=== PATIENT | male | born 1955 | race Caucasian/White ===

== ENCOUNTER 2021-03-14 16:27 | Inpatient (IN) | payer OTHER ==
[~2021-03-14] VITALS: Ht 177.8 cm; Wt 121.2 kg
--- NOTE | 2021-03-14 18:24 | PHYS DOC ---
General Adult EDM: Chief Complaint: ABDOMINAL PAIN HPI: HPI: 65-year-old male past medical history of hypertension, hyperlipidemia and obesity, presents to the ED sent in by primary care physician Dr. Danielle with concerns for elevated liver function test. Patient was seen by his primary care physician with epigastric abdominal pain and vomiting for the past week. Does report loose stools for the past day. Denies any history of alcohol abuse, IVDU or sick contacts. No history of Covid. No known history of hepatitis. No associated melena, hematuria, bruising or increased bleeding. Currently reports no active vomiting. Abdominal pain is mild/well controlled. Review of Systems: Review of Systems: Constitutional: Denies fever or chills. [] Eyes: Denies change in visual acuity. [] HENT: Denies nasal congestion or sore throat. [] Respiratory: Denies cough or shortness of breath. [] Cardiovascular: Denies chest pain or edema. [] GI: Denies constipation, melena, hematochezia : Denies hematuria Musculoskeletal: Denies back pain or joint pain. [] Integument: Denies rash or bleeding Neurologic: Denies headache, focal weakness or sensory changes. [] Endocrine: Denies polyuria or polydipsia. [] Lymphatic: Denies swollen glands. [] Psychiatric: Denies depression or anxiety. [] Heart Score: C/O Chest Pain: No Risk Factors: Risk Factors: DM, Current or recent (<one month) smoker, HTN, HLP, family history of CAD, obesity. Risk Scores: Score 0 - 3: 2.5% MACE over next 6 weeks - Discharge Home Score 4 - 6: 20.3% MACE over next 6 weeks - Admit for Clinical Observation Score 7 - 10: 72.7% MACE over next 6 weeks - Early Invasive Strategies Physical Exam: PE: Constitutional: Well developed, well nourished, no acute distress, non-toxic appearance. HENT: Normocephalic, atraumatic, Eyes: EOMI, conjunctiva normal, no discharge. Neck: Normal range of motion, supple, Cardiovascular: S1/2 present, regular rhythm Lungs & Thorax: Speaking in full sentences, bilateral equal chest rise, no tachypnea or increased work of breathing Abdomen: soft, no tenderness, no rigidity or guarding, no right upper quadrant pain Patrick sign, obese abdomen Skin: Warm, dry, abdomen with multiple small hemangiomas 2mm Back: No tenderness, no CVA tenderness. [] Extremities: No tenderness, no cyanosis, no lower extremity edema Neurologic: Alert and oriented X 3, normal motor function, normal sensory function, no focal deficits noted. [] Psychologic: Affect normal, judgement normal, mood normal. [] EKG: EKG: Sinus rhythm at 57 bpm, no axis deviation, normal intervals, T wave inversion lead III, Q-wave in 3 and aVF, no ST elevation or ST depression, no active chest pain Radiology/Procedures: Radiology/Procedures: IMAGING REPORT Signed PATIENT: FELIX TAFOYACCOUNT: [id number] : 1955 LOCATION: ER AGE: 65 SEX: M EXAM STATUS: REG ER ORD. PHYSICIAN: MATHEW EDWARDS DO REASON: epigastric pain, OMNI 300 75 ML IV PROCEDURE: CT ABD PELV W/ IV CONTRST ONLY Exam: CT of abdomen and pelvis with contrast INDICATION: Epigastric pain TECHNIQUE: Sequential axial images through the abdomen and pelvis obtained following the administration of 75 mL of Isovue-370 IV contrast. Sagittal and coronal reformatted images were reconstructed from the axial data and reviewed. Exposure: One or more of the following in the visualized dose reduction techniques were utilized for this examination: 1. Automated exposure control 2. Adjustment of the MA and/or KV according to patient size 3. Use of iterative of reconstructive technique Comparisons: None FINDINGS: Heart size is normal. No pericardial effusion. Visualized lung bases are clear. No pleural effusion. Mild intrahepatic biliary ductal dilatation. Common bile duct is mildly dilated with stone noted at the ampulla measuring approximately 5 mm. There is additionally a 8 mm calculus in the common bile duct noted. Gallbladder is partially distended. Spleen, pancreas and adrenals are unremarkable. No perinephric inflammation or hydronephrosis. There is a cyst in the mid right kidney which measures approximately 2.7 cm in diameter. No renal or ureteral calculi are identified. Bladder is partially distended and not well evaluated. Prostate is not enlarged. Large and small bowel are unremarkable. Appendix is nonidentified. No free intra-abdominal air or fluid. No obstruction. Abdominal aorta has a normal course and caliber. Abdominal vasculature is patent. No enlarged intra-abdominal lymph nodes are identified. No suspicious osseous lesions or acute fractures. IMPRESSION: A 5 mm gallstone at the ampulla with associated common bile duct dilatation and mild intrahepatic biliary ductal dilatation. Additionally there is also a 8 mm gallstone in the more proximal common bile duct. Electronically signed by: Jennifer Contreras MD (03/14/2021 7:39 PM) [facility] DICTATED and SIGNED BY: JENNIFER CONTRERAS MD DATE: 03/14/21 [id number] 0 Course & Med Decision Making: Course & Med Decision Making Pertinent Labs and Imaging studies reviewed. (See chart for details) Concern for acute gallstone pancreatitis in the setting of elevated liver functions, no jaundice or fever. Will admit for medical management. GI consult placed. Patient stable time of admission and agrees with this plan. I have spoken with the patient and/or caregivers. I have explained the patient's condition, diagnosis and treatment plan based on the information available to me at this time. I have answered the patient's and/or caregivers questions and answered any concerns. The patient and/or caregivers have as good an understanding of the patient's diagnosis, condition and treatment plan as can be expected at this point. The patient has been stabilized within the capability of the emergency department. The patient will be transported for further care and management or will be moved to an observation or inpatient service. I have communicated with the staff or medical practitioner taking over this patient's care. Fredy Disclaimer: Fredy Disclaimer: This electronic medical record was generated, in whole or in part, using a voice recognition dictation system. Departure Departure Impression: Primary Impression: Acute gallstone pancreatitis Additional Impression: Elevated liver function tests Disposition: ADMITTED INPATIENT Admitting Physician: [facility] (Dr. Potts) Condition: STABLE MATHEW EDWARDS DO Mar 14, 2021 18:24
[2021-03-14 18:49] LABS: BASO # 0.1 x10^3/uL (0.0-0.2); BASO % 1 % (0-3); EOS # 0.3 x10^3/uL (0.0-0.7); EOS % 5 % (0-3); HEMATOCRIT 38.3 % (39.0-53.0); LYMPH # 1.1 x10^3/uL (1.0-4.8); LYMPH % 20 % (24-48); MEAN CORPUSCULAR HEMOGLOBIN 28 pg (25-35); MEAN CORPUSCULAR HGB CONC 34 g/dL (31-37); MEAN CORPUSCULAR VOLUME 83 fL (79-100); MONO # 0.8 x10^3/uL (0.0-1.1); MONO % 14 % (0-9); NEUT # 3.4 x10^3/uL (1.8-7.7); NEUT % 61 % (31-73); PLATELET COUNT 307 x10^3/uL (140-400); RED BLOOD COUNT 4.63 x10^6/uL (4.30-5.70); RED CELL DISTRIBUTION WIDTH 15.5 % (11.5-14.5); WHITE BLOOD COUNT 5.7 x10^3/uL (4.0-11.0)
[2021-03-14 19:00] LABS: CALCIUM 9.2 mg/dL (8.5-10.1); GFR 75.2; POTASSIUM 4.5 mmol/L (3.5-5.1)
[2021-03-14 19:04] LABS: ACETAMIN < 2 mcg/ml (10-30)
[2021-03-14 19:06] LABS: ALBUMIN 3.7 g/dL (3.4-5.0); DIRECT BILIRUBIN 1.2 mg/dL (0.0-0.2); TOTAL BILIRUBIN 1.9 mg/dL (0.2-1.0); TOTAL PROTEIN 7.2 g/dL (6.4-8.2)
[2021-03-14] MEDS ORDERED: IOHEXOL 300 MG/ML 100ML VIAL. IV ONE (19:15)
[2021-03-14] MEDS ORDERED: CONTRAST GIVEN. MC PRN (19:15)
--- NOTE | 2021-03-14 19:41 | RAD ---
Exam: CT of abdomen and pelvis with contrast INDICATION: Epigastric pain TECHNIQUE: Sequential axial images through the abdomen and pelvis obtained following the administrati on of 75 mL of Isovue-370 IV contrast. Sagittal and coronal reformatted images were reconstructed fro m the axial data and reviewed. Exposure: One or more of the following in the visualized dose reduction techniques were utilized for this examination: 1. Automated exposure control 2. Adjustment of the MA and/or KV according to patient size 3. Use of iterative of reconstructive technique Comparisons: None FINDINGS: Heart size is normal. No pericardial effusion. Visualized lung bases are clear. No pleural effusion. Mild intrahepatic biliary ductal dilatation. Common bile duct is mildly dilated with stone noted at t he ampulla measuring approximately 5 mm. There is additionally a 8 mm calculus in the common bile harman t noted. Gallbladder is partially distended. Spleen, pancreas and adrenals are unremarkable. No perinephric inflammation or hydronephrosis. There is a cyst in the mid right kidney which measures approximately 2.7 cm in diameter. No renal or ureteral calculi are identified. Bladder is partially distended and not well evaluated. Prostate is not enlarged. Large and small bowel are unremarkable. Appendix is nonidentified. No free intra-abdominal air or flu id. No obstruction. Abdominal aorta has a normal course and caliber. Abdominal vasculature is patent. No enlarged intra-abdominal lymph nodes are identified. No suspicious osseous lesions or acute fractures. IMPRESSION: A 5 mm gallstone at the ampulla with associated common bile duct dilatation and mild intrahepatic erasmo iary ductal dilatation. Additionally there is also a 8 mm gallstone in the more proximal common bile duct. Electronically signed by: Jennifer Briceno MD (03/14/2021 7:39 PM) [facility] [place]
[2021-03-14 20:55] LABS: BARBITURATES NEG (NEG); BENZODIAZEPINES NEG (NEG); CANNABINOIDS NEG (NEG); COCAINE NEG (NEG); METHADONE NEG (NEG); OPIATES NEG (NEG); PHENCYCLIDINE NEG (NEG)
[2021-03-14 20:57] LABS: AMPHETAMINE/METHAMPHETAMINE NEG (NEG)
--- NOTE | 2021-03-14 21:38 | PDOC1 ---
History and Physical Date of Admission Date of Admission DATE: 03/14/21 TIME: 21:36 Source Source: Chart review, Patient History of Present Illness History of Present Illness Mr. Anderson is a 65-year-old male with acutely abd pain, with vomiting and diarrhea that has actually improved today. He has had pain for a week and has seen his primary care and wast sent in by Dr. Danielle for LFT lab tests out of range yesterday, LFTs about 800 and was sent to the ER, he had diarrhea, worse a few days ago, and better today only, he was able to eat a [employer] sub at 1pm and has kept it down and has no abd pain currenlty no fever or chills or other nausea no new meds, no travel, no sick contacts. No history of Covid. Past Medical History Past Medical History hypertension, hyperlipidemia and obesity, Cardiovascular: HTN, Hyperlipidemia Pulmonary: No pertinent hx Psych: No pertinent hx Rheumatologic: No pertinent hx Infectious disease: No pertinent hx Endocrine: No pertinent hx Dermatology: No pertinent hx Family History Family History: No Significant Social History Smoke: No ALCOHOL: none Drugs: None Current Problem List Problem List Problems Medical Problems: (1) Acute gallstone pancreatitis Status: Acute (2) Acute pancreatitis Status: Acute (3) Elevated liver function tests Status: Acute Current Medications Current Medications Current Medications Iohexol (Omnipaque 300 Mg/ml) 75 ml 1X ONCE IV Last administered on 03/14/21at 19:39; Start 03/14/21 at 19:15; Stop 03/14/21 at 19:16; Status DC Info (CONTRAST GIVEN -- Rx MONITORING) 1 each PRN DAILY PRN MC SEE COMMENTS; Start 03/14/21 at 19:15; Stop 03/16/21 at 19:14 Allergies Allergies: Coded Allergies: No Known Drug Allergies (Unverified , 03/14/21) ROS General: No: Chills, Night Sweats, Fatigue, Malaise, Appetite, Other PSYCHOLOGICAL ROS: No: Anxiety, Behavioral Disorder, Concentration difficultie, Decreased libido, Depression, Disorientation, Hallucinations, Hostility, Irritablity, Memory difficulties, Mood Swings, Obsessive thoughts, Physical abuse, Sexual abuse, Sleep disturbances, Suicidal ideation, Other Eyes: No Blurry vision, No Decreased vision, No Double vision, No Dry eyes, No Excessive tearing, No Eye Pain, No Itchy Eyes, No Loss of vision, No Photophobia, No Scotomata, No Uses contacts, No Uses glasses, No Other HEENT: No: Heacaches, Visual Changes, Hearing change, Nasal congestion, Nasal discharge, Oral lesions, Sinus pain, Sore Throat, Epistaxis, Sneezing, Snoring, Tinnitus, Vertigo, Vocal changes, Other Respiratory: No: Cough, Hemoptysis, Orthopnea, Pleuritic Pain, Shortness of breath, SOB with excertion, Sputum Changes, Stridor, Tachypnea, Wheezing, Other Cardiovascular: No Chest Pain, No Palpitations, No Orthopnea, No Paroxysmal Noc. Dyspnea, No Edema, No Lt Headedness, No Other Gastrointestinal: Yes Nausea, Yes Abdominal Pain, Yes Diarrhea Genitourinary: No Dysuria, No Frequency, No Incontinence, No Hematuria, No Retention, No Discharge, No Urgency, No Pain, No Flank Pain, No Other, No , No , No , No , No , No , No Musculoskeletal: No Gait Disturbance, No Joint Pain, No Joint Stiffness, No Joint Swelling, No Muscle Pain, No Muscular Weakness, No Pain In:, No Swelling In:, No Other Neurological: No Behavorial Changes, No Bowel/Bladder ControlChng, No Confusion, No Dizziness, No Gait Disturbance, No Headaches, No Impaired Coord/balance, No Memory Loss, No Numbness/Tingling, No Seizures, No Speech Problems, No Tremors, No Visual Changes, No Weakness, No Other Skin: No Dry Skin, No Eczema, No Hair Changes, No Lumps, No Mole Changes, No Mottling, No Nail Changes, No Pruritus, No Rash, No Skin Lesion Changes, No Other, No Acne Physical Exam General: Alert, Oriented X3, Cooperative, No acute distress HEENT: Atraumatic, PERRLA Lungs: Clear to auscultation Heart: S1S2, RRR, no gallops, no murmurs Abdomen: Normal bowel sounds, Soft, No tenderness, No masses (obese, ), Other (negative sheikh sign) Extremities: No cyanosis, No edema, Normal pulses Skin: No rashes, No breakdown, No significant lesion Neuro: Normal speech, Sensation intact, Cranial nerves 3-12 NL Psych/Mental Status: Mental status NL, Mood NL Vitals Vitals Vital Signs Date Time Temp Pulse Resp B/P (MAP) Pulse Ox O2 Delivery O2 Flow Rate FiO2 03/14/21 20:23 54 16 160/77 (104) 97 Room Air 03/14/21 18:30 98.7 98.7 Labs Labs Laboratory Tests Test 03/14/21 18:35 03/14/21 20:30 White Blood Count 5.7 x10^3/uL (4.0-11.0) Red Blood Count 4.63 x10^6/uL (4.30-5.70) Hemoglobin 13.0 g/dL (13.0-17.5) Hematocrit 38.3 % (39.0-53.0) Mean Corpuscular Volume 83 fL (79-100) Mean Corpuscular Hemoglobin 28 pg (25-35) Mean Corpuscular Hemoglobin Concent 34 g/dL (31-37) Red Cell Distribution Width 15.5 % (11.5-14.5) Platelet Count 307 x10^3/uL (140-400) Neutrophils (%) (Auto) 61 % (31-73) Lymphocytes (%) (Auto) 20 % (24-48) Monocytes (%) (Auto) 14 % (0-9) Eosinophils (%) (Auto) 5 % (0-3) Basophils (%) (Auto) 1 % (0-3) Neutrophils # (Auto) 3.4 x10^3/uL (1.8-7.7) Lymphocytes # (Auto) 1.1 x10^3/uL (1.0-4.8) Monocytes # (Auto) 0.8 x10^3/uL (0.0-1.1) Eosinophils # (Auto) 0.3 x10^3/uL (0.0-0.7) Basophils # (Auto) 0.1 x10^3/uL (0.0-0.2) Sodium Level 141 mmol/L (136-145) Potassium Level 4.5 mmol/L (3.5-5.1) Chloride Level 107 mmol/L (98-107) Carbon Dioxide Level 26 mmol/L (21-32) Anion Gap 8 (6-14) Blood Urea Nitrogen 16 mg/dL (8-26) Creatinine 1.0 mg/dL (0.7-1.3) Estimated GFR (Cockcroft-Gault) 75.2 Glucose Level 91 mg/dL (70-99) Calcium Level 9.2 mg/dL (8.5-10.1) Total Bilirubin 1.9 mg/dL (0.2-1.0) Direct Bilirubin 1.2 mg/dL (0.0-0.2) Aspartate Amino Transf (AST/SGOT) 367 U/L (15-37) Alanine Aminotransferase (ALT/SGPT) 786 U/L (16-63) Alkaline Phosphatase 395 U/L (46-116) Creatine Kinase 469 U/L (39-308) Total Protein 7.2 g/dL (6.4-8.2) Albumin 3.7 g/dL (3.4-5.0) Lipase 437 U/L (73-393) Acetaminophen Level < 2 mcg/ml (10-30) Acetaminophen Last Dose Date Unk Acetaminophen Last Dose Time Unk Urine Opiates Screen Neg (NEG) Urine Methadone Screen Neg (NEG) Urine Barbiturates Neg (NEG) Urine Phencyclidine Screen Neg (NEG) Urine Amphetamine/Methamphetamine Neg (NEG) Urine Benzodiazepines Screen Neg (NEG) Urine Cocaine Screen Neg (NEG) Urine Cannabinoids Screen Neg (NEG) Urine Ethyl Alcohol Neg (NEG) Laboratory Tests Test 03/14/21 18:35 03/14/21 20:30 White Blood Count 5.7 x10^3/uL (4.0-11.0) Red Blood Count 4.63 x10^6/uL (4.30-5.70) Hemoglobin 13.0 g/dL (13.0-17.5) Hematocrit 38.3 % (39.0-53.0) Mean Corpuscular Volume 83 fL (79-100) Mean Corpuscular Hemoglobin 28 pg (25-35) Mean Corpuscular Hemoglobin Concent 34 g/dL (31-37) Red Cell Distribution Width 15.5 % (11.5-14.5) Platelet Count 307 x10^3/uL (140-400) Neutrophils (%) (Auto) 61 % (31-73) Lymphocytes (%) (Auto) 20 % (24-48) Monocytes (%) (Auto) 14 % (0-9) Eosinophils (%) (Auto) 5 % (0-3) Basophils (%) (Auto) 1 % (0-3) Neutrophils # (Auto) 3.4 x10^3/uL (1.8-7.7) Lymphocytes # (Auto) 1.1 x10^3/uL (1.0-4.8) Monocytes # (Auto) 0.8 x10^3/uL (0.0-1.1) Eosinophils # (Auto) 0.3 x10^3/uL (0.0-0.7) Basophils # (Auto) 0.1 x10^3/uL (0.0-0.2) Sodium Level 141 mmol/L (136-145) Potassium Level 4.5 mmol/L (3.5-5.1) Chloride Level 107 mmol/L (98-107) Carbon Dioxide Level 26 mmol/L (21-32) Anion Gap 8 (6-14) Blood Urea Nitrogen 16 mg/dL (8-26) Creatinine 1.0 mg/dL (0.7-1.3) Estimated GFR (Cockcroft-Gault) 75.2 Glucose Level 91 mg/dL (70-99) Calcium Level 9.2 mg/dL (8.5-10.1) Total Bilirubin 1.9 mg/dL (0.2-1.0) Direct Bilirubin 1.2 mg/dL (0.0-0.2) Aspartate Amino Transf (AST/SGOT) 367 U/L (15-37) Alanine Aminotransferase (ALT/SGPT) 786 U/L (16-63) Alkaline Phosphatase 395 U/L (46-116) Creatine Kinase 469 U/L (39-308) Total Protein 7.2 g/dL (6.4-8.2) Albumin 3.7 g/dL (3.4-5.0) Lipase 437 U/L (73-393) Acetaminophen Level < 2 mcg/ml (10-30) Acetaminophen Last Dose Date Unk Acetaminophen Last Dose Time Unk Urine Opiates Screen Neg (NEG) Urine Methadone Screen Neg (NEG) Urine Barbiturates Neg (NEG) Urine Phencyclidine Screen Neg (NEG) Urine Amphetamine/Methamphetamine Neg (NEG) Urine Benzodiazepines Screen Neg (NEG) Urine Cocaine Screen Neg (NEG) Urine Cannabinoids Screen Neg (NEG) Urine Ethyl Alcohol Neg (NEG) VTE Prophylaxis Ordered VTE Prophylaxis Devices: No VTE Pharmacological Prophylaxi: No Assessment/Plan Assessment/Plan acute abdominal pain with nausea and diarrhea that has improved, acute transaminitis, gallstone seen on CT scan, appears impacted, but now no pain, no sheikh sign, may have passed plan labs in AM GI and gen surg to see. PMH: obese, BMI 38, htn, lipids Justifications for Admission Other Justification CLARE LEE MD Mar 14, 2021 21:38
[2021-03-14 21:47] VITALS: BP 169/69
[2021-03-14] MEDS: IV NORMAL SALINE 1000ML BAG 1,000 ML IV SCH (23:43)
[2021-03-14 23:58] VITALS: BP 102/57
--- NOTE | 2021-03-15 00:07 | EKG ---
[facility] [address] [place] [address] Test Date: 2021-03-14 Test Time: 19:09:24 Pat Name: FELIX TAFOYA Department: Room: Gender: M [employer]: : 1955 Requested By: MATHEW EDWARDS Order Number: [id number] Reading MD: Measurements Intervals Finley Rate: 57 P: 0 NH: 166 QRS: 14 QRSD: 84 T: 17 QT: 432 QTc: 424 Interpretive Statements SINUS RHYTHM NORMAL ECG RI6.02 No previous ECG available for comparison
[2021-03-15 04:14] VITALS: BP 101/49
[2021-03-15 04:30] LABS: PROTHROMBIN TIME PATIENT 12.6 SEC (11.7-14.0)
[2021-03-15 04:40] LABS: ALBUMIN 3.1 g/dL (3.4-5.0); ALBUMIN/GLOBULIN RATIO 0.9 (1.0-1.7); CALCIUM 8.7 mg/dL (8.5-10.1); CREATININE 0.9 mg/dL (0.7-1.3); POTASSIUM 3.6 mmol/L (3.5-5.1); TOTAL BILIRUBIN 1.4 mg/dL (0.2-1.0); TOTAL PROTEIN 6.5 g/dL (6.4-8.2)
[2021-03-15] MEDS ORDERED: ZINC50TA39 PO (05:42)
[2021-03-15] MEDS ORDERED: CETI10TA16 PO (05:42)
[2021-03-15] MEDS ORDERED: LISI20TA18 PO (05:42)
[2021-03-15] MEDS ORDERED: CHOL500045 PO (05:42)
[2021-03-15] MEDS ORDERED: ATOR40TA59 PO (05:42)
[2021-03-15] MEDS ORDERED: OMEG1CAP6 PO (05:42)
[2021-03-15] MEDS ORDERED: FEXO180T16 PO (05:42)
[2021-03-15 07:00] VITALS: BP 138/82
[2021-03-15] MEDS: IV NORMAL SALINE 1000ML BAG 1,000 ML IV SCH ×2 (09:03→17:45)
--- NOTE | 2021-03-15 09:08 | PDOC2 ---
CONSULT Date of Consult Date of Consult DATE: 03/15/21 TIME: 09:05 Reason for Consult Reason for Consult: Abdominal pain pancreatitis Referring Physician Referring Physician: Delroy Identification/Chief Complaint Chief Complaint Abdominal pain nausea vomiting Source Source: Chart review, Patient History of Present Illness Reason for Visit: 65-year-old male has been ill for approximately a week and a half with epigastric abdominal pain bloating feeling have 1 episode of emesis with some nausea. Is never had an episode like this before. Came to the emergency department further evaluation CT scan was done which showed a stone at the ampulla of Vater and a smaller stone more proximal in the common bile duct. Elevated liver enzymes and lipase Past Medical History Cardiovascular: HTN, Hyperlipidemia Pulmonary: No pertinent hx Psych: No pertinent hx Rheumatologic: No pertinent hx Infectious disease: No pertinent hx Endocrine: No pertinent hx Dermatology: No pertinent hx Family History Family History: No Significant Social History No ALCOHOL: none Drugs: None Current Problem List Problem List Problems Medical Problems: (1) Acute gallstone pancreatitis Status: Acute (2) Acute pancreatitis Status: Acute (3) Elevated liver function tests Status: Acute Current Medications Current Medications Current Medications Iohexol (Omnipaque 300 Mg/ml) 75 ml 1X ONCE IV Last administered on 03/14/21at 19:39; Start 03/14/21 at 19:15; Stop 03/14/21 at 19:16; Status DC Info (CONTRAST GIVEN -- Rx MONITORING) 1 each PRN DAILY PRN MC SEE COMMENTS; Start 03/14/21 at 19:15; Stop 03/16/21 at 19:14 Sodium Chloride 1,000 ml @ 100 mls/hr Q10H IV Last administered on 03/15/21at 09:03; Start 03/14/21 at 21:45 Active Scripts Active Reported Cetirizine Hcl 10 Mg Tablet 1 Tab PO DAILY PRN Zinc 50 Mg Tablet 50 Mg PO DAILY Vitamin D3 (Cholecalciferol (Vitamin D3)) 125 Mcg Tablet 125 Mcg PO DAILY Fish Oil 1,000 Mg Capsule (Letts-3 Fatty Acids/Fish Oil) 1 Each Capsule 1 Each PO DAILY Fexofenadine Hcl 180 Mg Tablet 1 Tab PO DAILY Atorvastatin Calcium 40 Mg Tablet 1 Tab PO DAILY Lisinopril 20 Mg Tablet 1 Tab PO DAILY Allergies Allergies: Coded Allergies: No Known Drug Allergies (Unverified , 03/14/21) ROS Gastrointestinal: Yes Nausea, Yes Vomiting, Yes Abdominal Pain Physical Exam General: Alert, Oriented X3, Cooperative, No acute distress HEENT: Atraumatic, EOMI Lungs: Clear to auscultation, Normal air movement Heart: Regular rate, No murmurs Abdomen: Normal bowel sounds, Soft, Other (Mildly tender to palpation epigastrium) Extremities: No edema Skin: No significant lesion Neuro: Normal speech Psych/Mental Status: Mental status NL Vitals VITALS Vital Signs Date Time Temp Pulse Resp B/P (MAP) Pulse Ox O2 Delivery O2 Flow Rate FiO2 03/15/21 07:00 98.4 55 20 138/82 (100) 97 Room Air 98.4 Labs Labs Laboratory Tests Test 03/14/21 18:35 03/14/21 20:30 03/15/21 04:00 White Blood Count 5.7 x10^3/uL (4.0-11.0) Red Blood Count 4.63 x10^6/uL (4.30-5.70) Hemoglobin 13.0 g/dL (13.0-17.5) Hematocrit 38.3 % (39.0-53.0) Mean Corpuscular Volume 83 fL (79-100) Mean Corpuscular Hemoglobin 28 pg (25-35) Mean Corpuscular Hemoglobin Concent 34 g/dL (31-37) Red Cell Distribution Width 15.5 % (11.5-14.5) Platelet Count 307 x10^3/uL (140-400) Neutrophils (%) (Auto) 61 % (31-73) Lymphocytes (%) (Auto) 20 % (24-48) Monocytes (%) (Auto) 14 % (0-9) Eosinophils (%) (Auto) 5 % (0-3) Basophils (%) (Auto) 1 % (0-3) Neutrophils # (Auto) 3.4 x10^3/uL (1.8-7.7) Lymphocytes # (Auto) 1.1 x10^3/uL (1.0-4.8) Monocytes # (Auto) 0.8 x10^3/uL (0.0-1.1) Eosinophils # (Auto) 0.3 x10^3/uL (0.0-0.7) Basophils # (Auto) 0.1 x10^3/uL (0.0-0.2) Sodium Level 141 mmol/L (136-145) 143 mmol/L (136-145) Potassium Level 4.5 mmol/L (3.5-5.1) 3.6 mmol/L (3.5-5.1) Chloride Level 107 mmol/L (98-107) 108 mmol/L (98-107) Carbon Dioxide Level 26 mmol/L (21-32) 26 mmol/L (21-32) Anion Gap 8 (6-14) 9 (6-14) Blood Urea Nitrogen 16 mg/dL (8-26) 13 mg/dL (8-26) Creatinine 1.0 mg/dL (0.7-1.3) 0.9 mg/dL (0.7-1.3) Estimated GFR (Cockcroft-Gault) 75.2 85.0 Glucose Level 91 mg/dL (70-99) 91 mg/dL (70-99) Calcium Level 9.2 mg/dL (8.5-10.1) 8.7 mg/dL (8.5-10.1) Total Bilirubin 1.9 mg/dL (0.2-1.0) 1.4 mg/dL (0.2-1.0) Direct Bilirubin 1.2 mg/dL (0.0-0.2) Aspartate Amino Transf (AST/SGOT) 367 U/L (15-37) 295 U/L (15-37) Alanine Aminotransferase (ALT/SGPT) 786 U/L (16-63) 685 U/L (16-63) Alkaline Phosphatase 395 U/L (46-116) 324 U/L (46-116) Creatine Kinase 469 U/L (39-308) Total Protein 7.2 g/dL (6.4-8.2) 6.5 g/dL (6.4-8.2) Albumin 3.7 g/dL (3.4-5.0) 3.1 g/dL (3.4-5.0) Lipase 437 U/L (73-393) Acetaminophen Level < 2 mcg/ml (10-30) Acetaminophen Last Dose Date Unk Acetaminophen Last Dose Time Unk Urine Opiates Screen Neg (NEG) Urine Methadone Screen Neg (NEG) Urine Barbiturates Neg (NEG) Urine Phencyclidine Screen Neg (NEG) Urine Amphetamine/Methamphetamine Neg (NEG) Urine Benzodiazepines Screen Neg (NEG) Urine Cocaine Screen Neg (NEG) Urine Cannabinoids Screen Neg (NEG) Urine Ethyl Alcohol Neg (NEG) Prothrombin Time 12.6 SEC (11.7-14.0) Prothromb Time International Ratio 0.9 (0.8-1.1) Activated Partial Thromboplast Time 29 SEC (24-38) BUN/Creatinine Ratio 14 (6-20) Albumin/Globulin Ratio 0.9 (1.0-1.7) Laboratory Tests Test 03/14/21 18:35 03/14/21 20:30 03/15/21 04:00 White Blood Count 5.7 x10^3/uL (4.0-11.0) Red Blood Count 4.63 x10^6/uL (4.30-5.70) Hemoglobin 13.0 g/dL (13.0-17.5) Hematocrit 38.3 % (39.0-53.0) Mean Corpuscular Volume 83 fL (79-100) Mean Corpuscular Hemoglobin 28 pg (25-35) Mean Corpuscular Hemoglobin Concent 34 g/dL (31-37) Red Cell Distribution Width 15.5 % (11.5-14.5) Platelet Count 307 x10^3/uL (140-400) Neutrophils (%) (Auto) 61 % (31-73) Lymphocytes (%) (Auto) 20 % (24-48) Monocytes (%) (Auto) 14 % (0-9) Eosinophils (%) (Auto) 5 % (0-3) Basophils (%) (Auto) 1 % (0-3) Neutrophils # (Auto) 3.4 x10^3/uL (1.8-7.7) Lymphocytes # (Auto) 1.1 x10^3/uL (1.0-4.8) Monocytes # (Auto) 0.8 x10^3/uL (0.0-1.1) Eosinophils # (Auto) 0.3 x10^3/uL (0.0-0.7) Basophils # (Auto) 0.1 x10^3/uL (0.0-0.2) Sodium Level 141 mmol/L (136-145) 143 mmol/L (136-145) Potassium Level 4.5 mmol/L (3.5-5.1) 3.6 mmol/L (3.5-5.1) Chloride Level 107 mmol/L (98-107) 108 mmol/L (98-107) Carbon Dioxide Level 26 mmol/L (21-32) 26 mmol/L (21-32) Anion Gap 8 (6-14) 9 (6-14) Blood Urea Nitrogen 16 mg/dL (8-26) 13 mg/dL (8-26) Creatinine 1.0 mg/dL (0.7-1.3) 0.9 mg/dL (0.7-1.3) Estimated GFR (Cockcroft-Gault) 75.2 85.0 Glucose Level 91 mg/dL (70-99) 91 mg/dL (70-99) Calcium Level 9.2 mg/dL (8.5-10.1) 8.7 mg/dL (8.5-10.1) Total Bilirubin 1.9 mg/dL (0.2-1.0) 1.4 mg/dL (0.2-1.0) Direct Bilirubin 1.2 mg/dL (0.0-0.2) Aspartate Amino Transf (AST/SGOT) 367 U/L (15-37) 295 U/L (15-37) Alanine Aminotransferase (ALT/SGPT) 786 U/L (16-63) 685 U/L (16-63) Alkaline Phosphatase 395 U/L (46-116) 324 U/L (46-116) Creatine Kinase 469 U/L (39-308) Total Protein 7.2 g/dL (6.4-8.2) 6.5 g/dL (6.4-8.2) Albumin 3.7 g/dL (3.4-5.0) 3.1 g/dL (3.4-5.0) Lipase 437 U/L (73-393) Acetaminophen Level < 2 mcg/ml (10-30) Acetaminophen Last Dose Date Unk Acetaminophen Last Dose Time Unk Urine Opiates Screen Neg (NEG) Urine Methadone Screen Neg (NEG) Urine Barbiturates Neg (NEG) Urine Phencyclidine Screen Neg (NEG) Urine Amphetamine/Methamphetamine Neg (NEG) Urine Benzodiazepines Screen Neg (NEG) Urine Cocaine Screen Neg (NEG) Urine Cannabinoids Screen Neg (NEG) Urine Ethyl Alcohol Neg (NEG) Prothrombin Time 12.6 SEC (11.7-14.0) Prothromb Time International Ratio 0.9 (0.8-1.1) Activated Partial Thromboplast Time 29 SEC (24-38) BUN/Creatinine Ratio 14 (6-20) Albumin/Globulin Ratio 0.9 (1.0-1.7) Assessment/Plan Assessment/Plan Gallstone pancreatitis with choledocholithiasis enzymes appear to be improving. Patient has less pain GI consult for possible ERCP patient will need cholecystectomy prior to discharge JOSE ELIAS LYONS MD Mar 15, 2021 09:08
[2021-03-15 10:59] VITALS: BP 144/81
--- NOTE | 2021-03-15 11:17 | PDOC2 ---
GI CONSULT Date of Service: DATE: 03/15/21 TIME: 11:09 Reason For Consult: Choledocholithiasis HPI: HPI: 65 y/o male with ~1 1/2 week history of epigastric pain; had some N, V with this. Seen by PCP and abnormal LFT's-->sent to ER. On imaging, choledocholithiasis (no stones in GB to my eye). Has had couple of milder/shorter episodes in the past. Currently pain-free. No prior h/o biliary issues. Occasional heartburn w/o dysphagia. No PUD, liver or pancreatic history. Lipase mildly up here. Non-smoker. Occasional alcohol. Denies diarrhea, constipation, overt GI bleeding. 2 prior colonoscopies negative per him, lastly between 5 and 10 years ago. Wt/appetite OK. GIFH negative. PMH: PMH: HTN, HLP. FH: Family History: No pertinent hx Social History: Smoke: No ALCOHOL: none Drugs: None ROS: GEN: Denies fevers, chills, sweats HEENT: Denies blurred vision, sore throat CV: Denies chest pain RESP: Denies shortness of air, cough GI: Per HPI : Denies hematuria, dysuria ENDO: Denies weight changes NEURO: Denies confusion, dizziness MSK: Denies weakness, joint pain/swelling SKIN: Denies jaundice, pruritus Vitals: Vitals: Vital Signs Date Time Temp Pulse Resp B/P (MAP) Pulse Ox O2 Delivery O2 Flow Rate FiO2 03/15/21 10:59 98.8 52 18 144/81 (102) 94 Room Air 98.8 Labs: Labs: Laboratory Tests Test 03/14/21 18:35 03/14/21 20:30 03/15/21 04:00 White Blood Count 5.7 x10^3/uL (4.0-11.0) Red Blood Count 4.63 x10^6/uL (4.30-5.70) Hemoglobin 13.0 g/dL (13.0-17.5) Hematocrit 38.3 % (39.0-53.0) Mean Corpuscular Volume 83 fL (79-100) Mean Corpuscular Hemoglobin 28 pg (25-35) Mean Corpuscular Hemoglobin Concent 34 g/dL (31-37) Red Cell Distribution Width 15.5 % (11.5-14.5) Platelet Count 307 x10^3/uL (140-400) Neutrophils (%) (Auto) 61 % (31-73) Lymphocytes (%) (Auto) 20 % (24-48) Monocytes (%) (Auto) 14 % (0-9) Eosinophils (%) (Auto) 5 % (0-3) Basophils (%) (Auto) 1 % (0-3) Neutrophils # (Auto) 3.4 x10^3/uL (1.8-7.7) Lymphocytes # (Auto) 1.1 x10^3/uL (1.0-4.8) Monocytes # (Auto) 0.8 x10^3/uL (0.0-1.1) Eosinophils # (Auto) 0.3 x10^3/uL (0.0-0.7) Basophils # (Auto) 0.1 x10^3/uL (0.0-0.2) Sodium Level 141 mmol/L (136-145) 143 mmol/L (136-145) Potassium Level 4.5 mmol/L (3.5-5.1) 3.6 mmol/L (3.5-5.1) Chloride Level 107 mmol/L (98-107) 108 mmol/L (98-107) Carbon Dioxide Level 26 mmol/L (21-32) 26 mmol/L (21-32) Anion Gap 8 (6-14) 9 (6-14) Blood Urea Nitrogen 16 mg/dL (8-26) 13 mg/dL (8-26) Creatinine 1.0 mg/dL (0.7-1.3) 0.9 mg/dL (0.7-1.3) Estimated GFR (Cockcroft-Gault) 75.2 85.0 Glucose Level 91 mg/dL (70-99) 91 mg/dL (70-99) Calcium Level 9.2 mg/dL (8.5-10.1) 8.7 mg/dL (8.5-10.1) Total Bilirubin 1.9 mg/dL (0.2-1.0) 1.4 mg/dL (0.2-1.0) Direct Bilirubin 1.2 mg/dL (0.0-0.2) Aspartate Amino Transf (AST/SGOT) 367 U/L (15-37) 295 U/L (15-37) Alanine Aminotransferase (ALT/SGPT) 786 U/L (16-63) 685 U/L (16-63) Alkaline Phosphatase 395 U/L (46-116) 324 U/L (46-116) Creatine Kinase 469 U/L (39-308) Total Protein 7.2 g/dL (6.4-8.2) 6.5 g/dL (6.4-8.2) Albumin 3.7 g/dL (3.4-5.0) 3.1 g/dL (3.4-5.0) Lipase 437 U/L (73-393) Acetaminophen Level < 2 mcg/ml (10-30) Acetaminophen Last Dose Date Unk Acetaminophen Last Dose Time Unk Urine Opiates Screen Neg (NEG) Urine Methadone Screen Neg (NEG) Urine Barbiturates Neg (NEG) Urine Phencyclidine Screen Neg (NEG) Urine Amphetamine/Methamphetamine Neg (NEG) Urine Benzodiazepines Screen Neg (NEG) Urine Cocaine Screen Neg (NEG) Urine Cannabinoids Screen Neg (NEG) Urine Ethyl Alcohol Neg (NEG) Prothrombin Time 12.6 SEC (11.7-14.0) Prothromb Time International Ratio 0.9 (0.8-1.1) Activated Partial Thromboplast Time 29 SEC (24-38) BUN/Creatinine Ratio 14 (6-20) Albumin/Globulin Ratio 0.9 (1.0-1.7) Allergies: Coded Allergies: No Known Drug Allergies (Unverified , 03/14/21) Medications: Current Medications Medications (Trade) Dose Ordered Sig/Devan Route PRN Reason Start Time Stop Time Status Last Admin Dose Admin Iohexol (Omnipaque 300 Mg/ml) 75 ml 1X ONCE IV 03/14/21 19:15 03/14/21 19:16 DC 03/14/21 19:39 Sodium Chloride 1,000 ml @ 100 mls/hr Q10H IV 03/14/21 21:45 03/15/21 09:03 Imaging: Imaging: On CT A/P: IMPRESSION: A 5 mm gallstone at the ampulla with associated common bile duct dilatation and mild intrahepatic biliary ductal dilatation. Additionally there is also a 8 mm gallstone in the more proximal common bile duct. (Given pain-free, passed the smaller one?) PE: GEN: NAD HEENT: Atraumatic, PERRLA LUNGS: CTAB HEART: RRR, no murmurs ABD: NABS, S/ND/NT, no masses EXTREMITY: No edema SKIN: No rashes, no jaundice NEURO/PSYCH: A & O 3 A/P: A/P: IMP: Choledocholithiasis. Stable currently w/o pain, fever, etc. and LFT's not rising. REC: Needs ERCP semi-electively, not urgent. Will discuss timing with Dr. Nieto this evening. Check INR. Check COVID status (though has had both shots). --other pending. JAROCHO BOSTON MD Mar 15, 2021 11:17
--- NOTE | 2021-03-15 12:54 | PDOC ---
[employer] PROGRESS NOTE Date of Service DOS: DATE: 03/15/21 TIME: 12:53 Chief Complaint Chief Complaint acute abdominal pain with nausea and diarrhea that has improved, acute transaminitis, gallstone seen on CT scan, appears impacted, but now no pain, no sheikh sign, may have passed GI and gen surg following, History of Present Illness History of Present Illness repeat labs in AM, improvement in LFTs, bili down almost normal cnot IV fluid hydration, clear liquids , may try fulls later, NPO at [place] Gen surg plans loan before DC, may need ERCP first Vitals/I&O Vitals/I&O: Vital Signs Date Time Temp Pulse Resp B/P (MAP) Pulse Ox O2 Delivery O2 Flow Rate FiO2 03/15/21 10:59 98.8 52 18 144/81 (102) 94 Room Air 98.8 I & O 03/14/21 03/14/21 03/15/21 14:59 22:59 06:59 Output Total 0 ml Balance 0 ml Physical Exam General: Alert, Oriented X3, Cooperative, No acute distress Heart: Regular rate, No murmurs Lungs: Clear Abdomen: Normal bowel sounds, Soft, Other (Mildly tender to palpation epigastrium) Extremities: No cyanosis, No edema Skin: No rashes, No significant lesion Labs Labs: Laboratory Tests Test 03/14/21 18:35 03/14/21 20:30 03/15/21 04:00 White Blood Count 5.7 x10^3/uL (4.0-11.0) Red Blood Count 4.63 x10^6/uL (4.30-5.70) Hemoglobin 13.0 g/dL (13.0-17.5) Hematocrit 38.3 % (39.0-53.0) Mean Corpuscular Volume 83 fL (79-100) Mean Corpuscular Hemoglobin 28 pg (25-35) Mean Corpuscular Hemoglobin Concent 34 g/dL (31-37) Red Cell Distribution Width 15.5 % (11.5-14.5) Platelet Count 307 x10^3/uL (140-400) Neutrophils (%) (Auto) 61 % (31-73) Lymphocytes (%) (Auto) 20 % (24-48) Monocytes (%) (Auto) 14 % (0-9) Eosinophils (%) (Auto) 5 % (0-3) Basophils (%) (Auto) 1 % (0-3) Neutrophils # (Auto) 3.4 x10^3/uL (1.8-7.7) Lymphocytes # (Auto) 1.1 x10^3/uL (1.0-4.8) Monocytes # (Auto) 0.8 x10^3/uL (0.0-1.1) Eosinophils # (Auto) 0.3 x10^3/uL (0.0-0.7) Basophils # (Auto) 0.1 x10^3/uL (0.0-0.2) Sodium Level 141 mmol/L (136-145) 143 mmol/L (136-145) Potassium Level 4.5 mmol/L (3.5-5.1) 3.6 mmol/L (3.5-5.1) Chloride Level 107 mmol/L (98-107) 108 mmol/L (98-107) Carbon Dioxide Level 26 mmol/L (21-32) 26 mmol/L (21-32) Anion Gap 8 (6-14) 9 (6-14) Blood Urea Nitrogen 16 mg/dL (8-26) 13 mg/dL (8-26) Creatinine 1.0 mg/dL (0.7-1.3) 0.9 mg/dL (0.7-1.3) Estimated GFR (Cockcroft-Gault) 75.2 85.0 Glucose Level 91 mg/dL (70-99) 91 mg/dL (70-99) Calcium Level 9.2 mg/dL (8.5-10.1) 8.7 mg/dL (8.5-10.1) Total Bilirubin 1.9 mg/dL (0.2-1.0) 1.4 mg/dL (0.2-1.0) Direct Bilirubin 1.2 mg/dL (0.0-0.2) Aspartate Amino Transf (AST/SGOT) 367 U/L (15-37) 295 U/L (15-37) Alanine Aminotransferase (ALT/SGPT) 786 U/L (16-63) 685 U/L (16-63) Alkaline Phosphatase 395 U/L (46-116) 324 U/L (46-116) Creatine Kinase 469 U/L (39-308) Total Protein 7.2 g/dL (6.4-8.2) 6.5 g/dL (6.4-8.2) Albumin 3.7 g/dL (3.4-5.0) 3.1 g/dL (3.4-5.0) Lipase 437 U/L (73-393) Acetaminophen Level < 2 mcg/ml (10-30) Acetaminophen Last Dose Date Unk Acetaminophen Last Dose Time Unk Urine Opiates Screen Neg (NEG) Urine Methadone Screen Neg (NEG) Urine Barbiturates Neg (NEG) Urine Phencyclidine Screen Neg (NEG) Urine Amphetamine/Methamphetamine Neg (NEG) Urine Benzodiazepines Screen Neg (NEG) Urine Cocaine Screen Neg (NEG) Urine Cannabinoids Screen Neg (NEG) Urine Ethyl Alcohol Neg (NEG) Prothrombin Time 12.6 SEC (11.7-14.0) Prothromb Time International Ratio 0.9 (0.8-1.1) Activated Partial Thromboplast Time 29 SEC (24-38) BUN/Creatinine Ratio 14 (6-20) Albumin/Globulin Ratio 0.9 (1.0-1.7) Assessment and Plan Assessmemt and Plan Problems Medical Problems: (1) Acute gallstone pancreatitis Status: Acute (2) Acute pancreatitis Status: Acute (3) Elevated liver function tests Status: Acute Comment Review of Relevant I have reviewed the following items demario (where applicable) has been applied. Medications: Current Medications Medications (Trade) Dose Ordered Sig/Devan Route PRN Reason Start Time Stop Time Status Last Admin Dose Admin Iohexol (Omnipaque 300 Mg/ml) 75 ml 1X ONCE IV 03/14/21 19:15 03/14/21 19:16 DC 03/14/21 19:39 Sodium Chloride 1,000 ml @ 100 mls/hr Q10H IV 03/14/21 21:45 03/15/21 09:03 Justifications for Admission Other Justification CLARE LEE MD Mar 15, 2021 12:54
[2021-03-15 15:00] VITALS: BP 145/82
[2021-03-15] MEDS: LISINOPRIL 20 MG TABLET PO SCH (17:08)
[2021-03-15 19:00] VITALS: BP 137/74
--- NOTE | 2021-03-15 21:40 | NUR ---
Patient taken off of telemetry after review by charge nurse and approval to do so.
[2021-03-15 22:44] VITALS: BP 105/60
[2021-03-16 02:55] VITALS: BP 127/71
[2021-03-16] MEDS: IV NORMAL SALINE 1000ML BAG 1,000 ML IV SCH ×2 (03:45→13:31)
[2021-03-16 06:33] LABS: ALBUMIN/GLOBULIN RATIO 0.9 (1.0-1.7); CALCIUM 8.6 mg/dL (8.5-10.1); CREATININE 0.8 mg/dL (0.7-1.3); GFR 97.3; POTASSIUM 3.7 mmol/L (3.5-5.1); TOTAL BILIRUBIN 1.1 mg/dL (0.2-1.0); TOTAL PROTEIN 6.4 g/dL (6.4-8.2)
[2021-03-16 07:00] VITALS: BP 151/81
--- NOTE | 2021-03-16 08:41 | PDOC ---
SURGICAL PROGRESS NOTE DATE: 03/16/21 TIME: 08:39 Subjective no pain waiting on plan Vital Signs Vital Signs Date Time Temp Pulse Resp B/P (MAP) Pulse Ox O2 Delivery O2 Flow Rate FiO2 03/16/21 07:56 Room Air 03/16/21 07:00 98.3 56 18 151/81 (104) 95 98.3 I&O Intake and Output 03/16/21 07:00 Intake Total 2300 ml Balance 2300 ml Intake Oral 700 ml IV Total 1600 ml # Voids 2 General: Alert, Cooperative Abdomen: Soft, No tenderness Labs Laboratory Tests Test 03/14/21 18:35 03/14/21 20:30 03/15/21 04:00 03/16/21 04:55 White Blood Count 5.7 x10^3/uL (4.0-11.0) Red Blood Count 4.63 x10^6/uL (4.30-5.70) Hemoglobin 13.0 g/dL (13.0-17.5) Hematocrit 38.3 % (39.0-53.0) Mean Corpuscular Volume 83 fL (79-100) Mean Corpuscular Hemoglobin 28 pg (25-35) Mean Corpuscular Hemoglobin Concent 34 g/dL (31-37) Red Cell Distribution Width 15.5 % (11.5-14.5) Platelet Count 307 x10^3/uL (140-400) Neutrophils (%) (Auto) 61 % (31-73) Lymphocytes (%) (Auto) 20 % (24-48) Monocytes (%) (Auto) 14 % (0-9) Eosinophils (%) (Auto) 5 % (0-3) Basophils (%) (Auto) 1 % (0-3) Neutrophils # (Auto) 3.4 x10^3/uL (1.8-7.7) Lymphocytes # (Auto) 1.1 x10^3/uL (1.0-4.8) Monocytes # (Auto) 0.8 x10^3/uL (0.0-1.1) Eosinophils # (Auto) 0.3 x10^3/uL (0.0-0.7) Basophils # (Auto) 0.1 x10^3/uL (0.0-0.2) Sodium Level 141 mmol/L (136-145) 143 mmol/L (136-145) 142 mmol/L (136-145) Potassium Level 4.5 mmol/L (3.5-5.1) 3.6 mmol/L (3.5-5.1) 3.7 mmol/L (3.5-5.1) Chloride Level 107 mmol/L (98-107) 108 mmol/L (98-107) 107 mmol/L (98-107) Carbon Dioxide Level 26 mmol/L (21-32) 26 mmol/L (21-32) 26 mmol/L (21-32) Anion Gap 8 (6-14) 9 (6-14) 9 (6-14) Blood Urea Nitrogen 16 mg/dL (8-26) 13 mg/dL (8-26) 8 mg/dL (8-26) Creatinine 1.0 mg/dL (0.7-1.3) 0.9 mg/dL (0.7-1.3) 0.8 mg/dL (0.7-1.3) Estimated GFR (Cockcroft-Gault) 75.2 85.0 97.3 Glucose Level 91 mg/dL (70-99) 91 mg/dL (70-99) 91 mg/dL (70-99) Calcium Level 9.2 mg/dL (8.5-10.1) 8.7 mg/dL (8.5-10.1) 8.6 mg/dL (8.5-10.1) Total Bilirubin 1.9 mg/dL (0.2-1.0) 1.4 mg/dL (0.2-1.0) 1.1 mg/dL (0.2-1.0) Direct Bilirubin 1.2 mg/dL (0.0-0.2) Aspartate Amino Transf (AST/SGOT) 367 U/L (15-37) 295 U/L (15-37) 262 U/L (15-37) Alanine Aminotransferase (ALT/SGPT) 786 U/L (16-63) 685 U/L (16-63) 668 U/L (16-63) Alkaline Phosphatase 395 U/L (46-116) 324 U/L (46-116) 284 U/L (46-116) Creatine Kinase 469 U/L (39-308) Total Protein 7.2 g/dL (6.4-8.2) 6.5 g/dL (6.4-8.2) 6.4 g/dL (6.4-8.2) Albumin 3.7 g/dL (3.4-5.0) 3.1 g/dL (3.4-5.0) 3.0 g/dL (3.4-5.0) Lipase 437 U/L (73-393) Acetaminophen Level < 2 mcg/ml (10-30) Acetaminophen Last Dose Date Unk Acetaminophen Last Dose Time Unk Urine Opiates Screen Neg (NEG) Urine Methadone Screen Neg (NEG) Urine Barbiturates Neg (NEG) Urine Phencyclidine Screen Neg (NEG) Urine Amphetamine/Methamphetamine Neg (NEG) Urine Benzodiazepines Screen Neg (NEG) Urine Cocaine Screen Neg (NEG) Urine Cannabinoids Screen Neg (NEG) Urine Ethyl Alcohol Neg (NEG) Prothrombin Time 12.6 SEC (11.7-14.0) Prothromb Time International Ratio 0.9 (0.8-1.1) Activated Partial Thromboplast Time 29 SEC (24-38) BUN/Creatinine Ratio 14 (6-20) 10 (6-20) Albumin/Globulin Ratio 0.9 (1.0-1.7) 0.9 (1.0-1.7) Laboratory Tests Test 03/16/21 04:55 Sodium Level 142 mmol/L (136-145) Potassium Level 3.7 mmol/L (3.5-5.1) Chloride Level 107 mmol/L (98-107) Carbon Dioxide Level 26 mmol/L (21-32) Anion Gap 9 (6-14) Blood Urea Nitrogen 8 mg/dL (8-26) Creatinine 0.8 mg/dL (0.7-1.3) Estimated GFR (Cockcroft-Gault) 97.3 BUN/Creatinine Ratio 10 (6-20) Glucose Level 91 mg/dL (70-99) Calcium Level 8.6 mg/dL (8.5-10.1) Total Bilirubin 1.1 mg/dL (0.2-1.0) Aspartate Amino Transf (AST/SGOT) 262 U/L (15-37) Alanine Aminotransferase (ALT/SGPT) 668 U/L (16-63) Alkaline Phosphatase 284 U/L (46-116) Total Protein 6.4 g/dL (6.4-8.2) Albumin 3.0 g/dL (3.4-5.0) Albumin/Globulin Ratio 0.9 (1.0-1.7) Problem List Problems Medical Problems: (1) Acute gallstone pancreatitis Status: Acute (2) Acute pancreatitis Status: Acute (3) Elevated liver function tests Status: Acute Assessment/Plan lab improving will await GI plans for possible ERCP Justicifation of Admission Dx: Justifications for Admission: Justification of Admission Dx: Yes Comments: gallstone pancreatitis FARHAD CASILLAS [employer] Mar 16, 2021 08:41
[2021-03-16] MEDS: LISINOPRIL 20 MG TABLET PO SCH (08:48)
--- NOTE | 2021-03-16 08:55 | PDOC2 ---
GI CONSULT Allergies: Coded Allergies: No Known Drug Allergies (Unverified , 03/14/21) ANGELIA PEACOCK Mar 16, 2021 08:55
--- NOTE | 2021-03-16 09:02 | PDOC ---
Date of Service: DATE: 03/16/21 TIME: 08:59 Subjective: Subjective: Has mild "hunger pain" but otherwise feels okay - demonstrates by (lightly) pounding on his abdomen. Objective: Objective: D/w Yun and Dr. Ruggiero. Vital Signs: Vital Signs Date Time Temp Pulse Resp B/P (MAP) Pulse Ox O2 Delivery O2 Flow Rate FiO2 03/16/21 07:56 Room Air 03/16/21 07:00 98.3 56 18 151/81 (104) 95 98.3 Labs: Laboratory Tests Test 03/16/21 04:55 Sodium Level 142 mmol/L Potassium Level 3.7 mmol/L Chloride Level 107 mmol/L Carbon Dioxide Level 26 mmol/L Anion Gap 9 Blood Urea Nitrogen 8 mg/dL Creatinine 0.8 mg/dL Estimated GFR (Cockcroft-Gault) 97.3 BUN/Creatinine Ratio 10 Glucose Level 91 mg/dL Calcium Level 8.6 mg/dL Total Bilirubin 1.1 mg/dL Aspartate Amino Transf (AST/SGOT) 262 U/L Alanine Aminotransferase (ALT/SGPT) 668 U/L Alkaline Phosphatase 284 U/L Total Protein 6.4 g/dL Albumin 3.0 g/dL Albumin/Globulin Ratio 0.9 PE: GEN: NAD LUNGS: CTAB HEART: RRR ABD: soft, non-tender, quiet BS NEURO/PSYCH: A & O 3 A/P: Choledocholithiasis Elevated LFTs - better/stable Mildly elevated lipase - normal pancreas on CT -- INR normal. Reviewed w/ Dr. Nieto - will plan for ERCP tomorrow afternoon. Justicifation of Admission Dx: Justifications for Admission: Justification of Admission Dx: Yes ANGELIA PEACOCK Mar 16, 2021 09:02
--- NOTE | 2021-03-16 10:30 | PDOC ---
[employer] PROGRESS NOTE Date of Service DOS: DATE: 03/16/21 TIME: 10:28 Chief Complaint Chief Complaint 03/16/2021 Patient seen and examined His pain has diminished Discussed with RN Discussed with case management Discussed with GI nurse practitioner Discussed with general surgery nurse practitioner The plan is to possibly get him an ERCP and then surgery acute abdominal pain with nausea and diarrhea that has improved, acute transaminitis, gallstone seen on CT scan, appears impacted, but now no pain, no sheikh sign, may have passed GI and gen surg following, History of Present Illness History of Present Illness repeat labs in AM, improvement in LFTs, bili down almost normal cnot IV fluid hydration, clear liquids , may try fulls later, NPO at [place] Gen surg plans loan before DC, may need ERCP first Vitals/I&O Vitals/I&O: Vital Signs Date Time Temp Pulse Resp B/P (MAP) Pulse Ox O2 Delivery O2 Flow Rate FiO2 03/16/21 07:56 Room Air 03/16/21 07:00 98.3 56 18 151/81 (104) 95 98.3 I & O 03/15/21 03/15/21 03/16/21 15:00 23:00 07:00 Intake Total 200 ml 2100 ml Balance 200 ml 2100 ml Physical Exam General: Alert, Cooperative Heart: Regular rate, No murmurs Lungs: Clear Abdomen: Soft, No tenderness Extremities: No cyanosis, No edema Skin: No rashes, No significant lesion Labs Labs: Laboratory Tests Test 03/16/21 04:55 Sodium Level 142 mmol/L (136-145) Potassium Level 3.7 mmol/L (3.5-5.1) Chloride Level 107 mmol/L (98-107) Carbon Dioxide Level 26 mmol/L (21-32) Anion Gap 9 (6-14) Blood Urea Nitrogen 8 mg/dL (8-26) Creatinine 0.8 mg/dL (0.7-1.3) Estimated GFR (Cockcroft-Gault) 97.3 BUN/Creatinine Ratio 10 (6-20) Glucose Level 91 mg/dL (70-99) Calcium Level 8.6 mg/dL (8.5-10.1) Total Bilirubin 1.1 mg/dL (0.2-1.0) Aspartate Amino Transf (AST/SGOT) 262 U/L (15-37) Alanine Aminotransferase (ALT/SGPT) 668 U/L (16-63) Alkaline Phosphatase 284 U/L (46-116) Total Protein 6.4 g/dL (6.4-8.2) Albumin 3.0 g/dL (3.4-5.0) Albumin/Globulin Ratio 0.9 (1.0-1.7) Assessment and Plan Assessmemt and Plan Problems Medical Problems: (1) Acute gallstone pancreatitis Status: Acute (2) Acute pancreatitis Status: Acute (3) Elevated liver function tests Status: Acut Gallstone pancreatitis Plan Possible ERCP Possible laparoscopic cholecystectomy IV fluids Pain meds As needed Zofran Home meds DVT prophylaxis Full code Comment Review of Relevant I have reviewed the following items demario (where applicable) has been applied. Medications: Current Medications Medications (Trade) Dose Ordered Sig/Devan Route PRN Reason Start Time Stop Time Status Last Admin Dose Admin Lisinopril (Prinivil) 20 mg DAILY PO 03/15/21 17:00 03/15/21 17:08 Justifications for Admission Other Justification HINA ROLAND III DO Mar 16, 2021 10:30
[2021-03-16 11:00] VITALS: BP 128/75
--- NOTE | 2021-03-16 11:40 | NUR ---
SW following. Discussed with RN, pt from home, room air, clear liquid diet. Pt having an ERCP and possible lap loan. Surgery and GI following. RN advised no SW needs at this time. SW will continue to follow.
[2021-03-16] MEDS ORDERED: IV RINGERS,LACTATED 1000ML 1,000 ML IV SCH (13:45)
[2021-03-16 15:00] VITALS: BP 137/89
[2021-03-16] MEDS ORDERED: CETIRIZINE HCL 10 MG TABLET. PO PRN (18:00)
--- NOTE | 2021-03-16 18:01 | NUR ---
This RN received telephone orders from Dr. Ruggiero to continue home medications.
[2021-03-16 19:00] VITALS: BP 141/85
[2021-03-16] MEDS: ATORVASTATIN CALCIUM 40 MG TABLET. PO SCH (20:58)
[2021-03-16 22:47] VITALS: BP 158/82
[2021-03-17] MEDS: IV NORMAL SALINE 1000ML BAG 1,000 ML IV SCH ×3 (01:04→19:45)
[2021-03-17 03:00] VITALS: BP 149/78
[2021-03-17 07:00] VITALS: BP 152/94
[2021-03-17 08:13] LABS: ALBUMIN 3.1 g/dL (3.4-5.0); DIRECT BILIRUBIN 0.6 mg/dL (0.0-0.2); TOTAL BILIRUBIN 1.1 mg/dL (0.2-1.0); TOTAL PROTEIN 6.7 g/dL (6.4-8.2)
[2021-03-17] MEDS: CHOLECALCIFEROL (VITAMIN D3) 5,000 UNIT CAPSULE PO SCH (09:00)
[2021-03-17] MEDS: ZINC SULFATE 220 MG CAPSULE. PO SCH (09:00)
[2021-03-17] MEDS ORDERED: FEXOFENADINE HCL PO SCH (09:00)
[2021-03-17] MEDS: OMEGA-3 FATTY ACIDS/FISH OIL 1,000 MG CAPSULE. PO SCH (09:00)
[2021-03-17] MEDS: LISINOPRIL 20 MG TABLET PO SCH (09:08)
--- NOTE | 2021-03-17 10:17 | PDOC ---
SURGICAL PROGRESS NOTE DATE: 03/17/21 TIME: 10:16 Subjective plans for ERCP today will FU on results Vital Signs Vital Signs Date Time Temp Pulse Resp B/P (MAP) Pulse Ox O2 Delivery O2 Flow Rate FiO2 03/17/21 09:08 59 152/94 03/17/21 07:00 98.6 18 96 Room Air 98.6 I&O Intake and Output 03/17/21 07:00 Intake Total 1120 ml Balance 1120 ml Intake Oral 120 ml IV Total 1000 ml # Voids 4 # Bowel Movements 1 Labs Laboratory Tests Test 03/16/21 04:55 03/17/21 07:30 Sodium Level 142 mmol/L (136-145) Potassium Level 3.7 mmol/L (3.5-5.1) Chloride Level 107 mmol/L (98-107) Carbon Dioxide Level 26 mmol/L (21-32) Anion Gap 9 (6-14) Blood Urea Nitrogen 8 mg/dL (8-26) Creatinine 0.8 mg/dL (0.7-1.3) Estimated GFR (Cockcroft-Gault) 97.3 BUN/Creatinine Ratio 10 (6-20) Glucose Level 91 mg/dL (70-99) Calcium Level 8.6 mg/dL (8.5-10.1) Total Bilirubin 1.1 mg/dL (0.2-1.0) 1.1 mg/dL (0.2-1.0) Aspartate Amino Transf (AST/SGOT) 262 U/L (15-37) 212 U/L (15-37) Alanine Aminotransferase (ALT/SGPT) 668 U/L (16-63) 618 U/L (16-63) Alkaline Phosphatase 284 U/L (46-116) 257 U/L (46-116) Total Protein 6.4 g/dL (6.4-8.2) 6.7 g/dL (6.4-8.2) Albumin 3.0 g/dL (3.4-5.0) 3.1 g/dL (3.4-5.0) Albumin/Globulin Ratio 0.9 (1.0-1.7) Direct Bilirubin 0.6 mg/dL (0.0-0.2) Laboratory Tests Test 03/17/21 07:30 Total Bilirubin 1.1 mg/dL (0.2-1.0) Direct Bilirubin 0.6 mg/dL (0.0-0.2) Aspartate Amino Transf (AST/SGOT) 212 U/L (15-37) Alanine Aminotransferase (ALT/SGPT) 618 U/L (16-63) Alkaline Phosphatase 257 U/L (46-116) Total Protein 6.7 g/dL (6.4-8.2) Albumin 3.1 g/dL (3.4-5.0) Problem List Problems Medical Problems: (1) Acute gallstone pancreatitis Status: Acute (2) Acute pancreatitis Status: Acute (3) Elevated liver function tests Status: Acute Justicifation of Admission Dx: Justifications for Admission: Justification of Admission Dx: Yes FARHAD CASILLAS TECHNICAL INTERN Mar 17, 2021 10:17
[2021-03-17 10:36] VITALS: BP 137/85
--- NOTE | 2021-03-17 11:07 | PDOC ---
[employer] PROGRESS NOTE Date of Service DOS: DATE: 03/17/21 TIME: 11:04 Chief Complaint Chief Complaint Gallstone pancreatitis History of Present Illness History of Present Illness 03/17/2021 Patient seen and examined He is going for ERCP today and possible lap loan tomorrow ? Chart reviewed Discussed with RN repeat labs in AM, improvement in LFTs, bili down almost normal cnot IV fluid hydration, clear liquids , may try fulls later, NPO at [place] Gen surg plans loan before DC, may need ERCP first Vitals/I&O Vitals/I&O: Vital Signs Date Time Temp Pulse Resp B/P (MAP) Pulse Ox O2 Delivery O2 Flow Rate FiO2 03/17/21 10:36 98.3 63 18 137/85 (102) 93 Room Air 98.3 I & O 03/16/21 03/16/21 03/17/21 15:00 23:00 07:00 Intake Total 1000 ml 120 ml Balance 1000 ml 120 ml Physical Exam General: Alert, Cooperative Heart: Regular rate, No murmurs Lungs: Clear Abdomen: Soft, No tenderness Extremities: No cyanosis, No edema Skin: No rashes, No significant lesion Labs Labs: Laboratory Tests Test 03/17/21 07:30 Total Bilirubin 1.1 mg/dL (0.2-1.0) Direct Bilirubin 0.6 mg/dL (0.0-0.2) Aspartate Amino Transf (AST/SGOT) 212 U/L (15-37) Alanine Aminotransferase (ALT/SGPT) 618 U/L (16-63) Alkaline Phosphatase 257 U/L (46-116) Total Protein 6.7 g/dL (6.4-8.2) Albumin 3.1 g/dL (3.4-5.0) Assessment and Plan Assessmemt and Plan Problems Medical Problems: (1) Acute gallstone pancreatitis Status: Acute (2) Acute pancreatitis Status: Acute (3) Elevated liver function tests Status: Acute Gallstone pancreatitis Plan ERCP today Possible laparoscopic cholecystectomy tomorrow? IV fluids Pain meds As needed Zofran Home meds DVT prophylaxis Full code Comment Review of Relevant I have reviewed the following items demario (where applicable) has been applied. Medications: Current Medications Medications (Trade) Dose Ordered Sig/Devan Route PRN Reason Start Time Stop Time Status Last Admin Dose Admin Atorvastatin Calcium (Lipitor) 40 mg QHS PO 03/16/21 21:00 03/16/21 20:58 Justifications for Admission Other Justification HINA ROLAND III DO Mar 17, 2021 11:06
--- NOTE | 2021-03-17 11:55 | NUR ---
SS following up with discharge planning. SS reviewed pt chart and discussed with pt RN. Pt is currently on room air. Pt having ERCP today. Discharge plan is currently to home when medically ready. SS will continue to follow for discharge planning.
[2021-03-17] MEDS ORDERED: SUCCINYLCHOLINE 200 MG/10 ML VIAL. ONE (12:00)
[2021-03-17] MEDS ORDERED: PHENYLEPHRINE in 0.9% NACL PF 1 MG/10 ML SYRINGE. IV ONE (12:00)
[2021-03-17] MEDS ORDERED: ePHEDrine PF IN SALINE 50 MG/10 ML SYRINGE. IV ONE (12:00)
[2021-03-17] MEDS ORDERED: LIDOCAINE 2% 100 MG/5 ML SYRINGE. ONE (12:00)
[2021-03-17] MEDS ORDERED: PROPOFOL 10 MG/ML (20ML) VIAL. IV ONE (12:00)
[2021-03-17 12:24] VITALS: BP 171/90
[2021-03-17] MEDS ORDERED: IOHEXOL 300 MG/ML 100ML VIAL. ONE (12:25)
[2021-03-17] MEDS ORDERED: fentaNYL PF VIAL 100 MCG/2 ML VIAL ONE (12:51)
[2021-03-17] MEDS ORDERED: ONDANSETRON PF 4 MG/2 ML VIAL. ONE (12:54)
[2021-03-17] MEDS ORDERED: IOHEXOL 300 MG/ML 50 ML VIAL. IV ONE (13:36)
--- NOTE | 2021-03-17 13:44 | PDOC4 ---
Operative Note Operative Note ERCP with sphincterotomy/stone extractions Meds propofol per anesthesia Pre-op dx Choledocholithiasis Post-op dx Choledocholithiasis s/p sphincterotomy/stone extractions Plan am labs ice chips lap loan in near future if wihtout complications post-ERCP ELAYNE MELGOZA MD Mar 17, 2021 13:44
[2021-03-17] MEDS: IV RINGERS,LACTATED 1000ML 1,000 ML IV SCH (14:15)
--- NOTE | 2021-03-17 15:44 | RAD ---
DG ERCP ENDO BILIARY DUCTAL SYS History: Reason: CBD stone, Comparison: None. Technique/findings: Fluoroscopy performed intraoperatively during ERCP. Dilated common bile duct with filling defects in the common bile duct. Balloon sweep was performed. See procedure note for further details. Fluoroscopy time: 3 minutes 13 seconds. Number of fluoroscopic images: 11 Impression: 1. Fluoroscopy provided during ERCP. Electronically signed by: Cooper Perez DO (03/17/2021 3:41 PM) [id number]
[2021-03-17 19:00] VITALS: BP 136/70
[2021-03-17] MEDS ORDERED: BENZOCAINE/MENTHOL LOZENGE. PO PRN (20:45)
[2021-03-17] MEDS: ATORVASTATIN CALCIUM 40 MG TABLET. PO SCH (20:59)
[2021-03-17 23:00] VITALS: BP 122/58
[2021-03-18 03:00] VITALS: BP 107/60
[2021-03-18] MEDS: IV NORMAL SALINE 1000ML BAG 1,000 ML IV SCH (03:06)
[2021-03-18] MEDS: IV RINGERS,LACTATED 1000ML 1,000 ML IV SCH (03:35)
[2021-03-18] MEDS ORDERED: IV RINGERS,LACTATED 1000ML 1,000 ML IV SCH (06:00)
[2021-03-18] MEDS ORDERED: PROCHLORPERAZINE 10 MG/2 ML VIAL. IVP PRN (06:00)
[2021-03-18] MEDS ORDERED: HYDROmorphone 2 MG/ML VIAL IVP PRN (06:00)
[2021-03-18] MEDS ORDERED: fentaNYL PF VIAL 100 MCG/2 ML VIAL IVP PRN ×2 (06:00)
[2021-03-18 06:58] LABS: BASO % 0 % (0-3); EOS # 0.2 x10^3/uL (0.0-0.7); EOS % 3 % (0-3); HEMATOCRIT 36.9 % (39.0-53.0); HEMOGLOBIN 11.7 g/dL (13.0-17.5); LYMPH # 0.9 x10^3/uL (1.0-4.8); LYMPH % 11 % (24-48); MEAN CORPUSCULAR HEMOGLOBIN 27 pg (25-35); MEAN CORPUSCULAR HGB CONC 32 g/dL (31-37); MEAN CORPUSCULAR VOLUME 84 fL (79-100); MONO # 0.8 x10^3/uL (0.0-1.1); MONO % 10 % (0-9); NEUT # 5.8 x10^3/uL (1.8-7.7); NEUT % 76 % (31-73); PLATELET COUNT 343 x10^3/uL (140-400); RED BLOOD COUNT 4.37 x10^6/uL (4.30-5.70); RED CELL DISTRIBUTION WIDTH 15.6 % (11.5-14.5); WHITE BLOOD COUNT 7.6 x10^3/uL (4.0-11.0)
[2021-03-18 07:00] VITALS: BP 136/86
[2021-03-18 07:15] LABS: ALBUMIN/GLOBULIN RATIO 0.9 (1.0-1.7); CALCIUM 8.4 mg/dL (8.5-10.1); CREATININE 0.9 mg/dL (0.7-1.3); TOTAL PROTEIN 6.3 g/dL (6.4-8.2)
--- NOTE | 2021-03-18 08:13 | PDOC ---
[employer] PROGRESS NOTE Date of Service DOS: DATE: 03/18/21 TIME: 08:12 Chief Complaint Chief Complaint Gallstone pancreatitis Choledocholithiasis status post ERCP with 3 stones removed History of Present Illness History of Present Illness 03/18/2020 Patient seen and examined He is doing relatively well this morning He had his ERCP yesterday with 3 stones extracted He is going for lap loan today Chart reviewed Discussed with RN 03/17/2021 Patient seen and examined He is going for ERCP today and possible lap loan tomorrow ? Chart reviewed Discussed with RN repeat labs in AM, improvement in LFTs, bili down almost normal cnot IV fluid hydration, clear liquids , may try fulls later, NPO at [place] Gen surg plans loan before DC, may need ERCP first Vitals/I&O Vitals/I&O: Vital Signs Date Time Temp Pulse Resp B/P (MAP) Pulse Ox O2 Delivery O2 Flow Rate FiO2 03/18/21 07:00 98.6 59 18 136/86 (103) 93 Room Air 98.6 03/18/21 03:00 6.0 I & O0 03/17/21 03/17/21 03/18/21 15:00 23:00 07:00 Intake Total 120 ml Balance 120 ml Physical Exam General: Alert, Cooperative Heart: Regular rate, No murmurs Lungs: Clear Abdomen: Soft, No tenderness Extremities: No cyanosis, No edema Skin: No rashes, No significant lesion Labs Labs: Laboratory Tests Test 03/18/21 06:05 White Blood Count 7.6 x10^3/uL (4.0-11.0) Red Blood Count 4.37 x10^6/uL (4.30-5.70) Hemoglobin 11.7 g/dL (13.0-17.5) Hematocrit 36.9 % (39.0-53.0) Mean Corpuscular Volume 84 fL (79-100) Mean Corpuscular Hemoglobin 27 pg (25-35) Mean Corpuscular Hemoglobin Concent 32 g/dL (31-37) Red Cell Distribution Width 15.6 % (11.5-14.5) Platelet Count 343 x10^3/uL (140-400) Neutrophils (%) (Auto) 76 % (31-73) Lymphocytes (%) (Auto) 11 % (24-48) Monocytes (%) (Auto) 10 % (0-9) Eosinophils (%) (Auto) 3 % (0-3) Basophils (%) (Auto) 0 % (0-3) Neutrophils # (Auto) 5.8 x10^3/uL (1.8-7.7) Lymphocytes # (Auto) 0.9 x10^3/uL (1.0-4.8) Monocytes # (Auto) 0.8 x10^3/uL (0.0-1.1) Eosinophils # (Auto) 0.2 x10^3/uL (0.0-0.7) Basophils # (Auto) 0.0 x10^3/uL (0.0-0.2) Sodium Level 143 mmol/L (136-145) Potassium Level 4.0 mmol/L (3.5-5.1) Chloride Level 107 mmol/L (98-107) Carbon Dioxide Level 29 mmol/L (21-32) Anion Gap 7 (6-14) Blood Urea Nitrogen 9 mg/dL (8-26) Creatinine 0.9 mg/dL (0.7-1.3) Estimated GFR (Cockcroft-Gault) 85.0 BUN/Creatinine Ratio 10 (6-20) Glucose Level 82 mg/dL (70-99) Calcium Level 8.4 mg/dL (8.5-10.1) Total Bilirubin 1.0 mg/dL (0.2-1.0) Aspartate Amino Transf (AST/SGOT) 172 U/L (15-37) Alanine Aminotransferase (ALT/SGPT) 518 U/L (16-63) Alkaline Phosphatase 241 U/L (46-116) Total Protein 6.3 g/dL (6.4-8.2) Albumin 3.0 g/dL (3.4-5.0) Albumin/Globulin Ratio 0.9 (1.0-1.7) Amylase Level 86 U/L (25-115) Lipase 423 U/L (73-393) Assessment and Plan Assessmemt and Plan Problems Medical Problems: (1) Acute gallstone pancreatitis Status: Acute (2) Acute pancreatitis Status: Acute (3) Elevated liver function tests Status: Acute Gallstone pancreatitis Status post ERCP with 3 stones extracted Plan Going for lap loan today IV fluids Pain meds As needed Zofran Home meds DVT prophylaxis Full code Comment Review of Relevant I have reviewed the following items demario (where applicable) has been applied. Medications: Current Medications Medications (Trade) Dose Ordered Sig/Devan Route PRN Reason Start Time Stop Time Status Last Admin Dose Admin Iohexol (Omnipaque 300 Mg/ml) 50 ml STK-MED ONCE IV 03/17/21 13:36 03/17/21 13:37 DC 03/17/21 13:36 Throat Lozenges (Cepacol Sore Throat Lozenge) 1 jaspreet PRN Q2HRS PRN PO SORE THROAT 03/17/21 20:45 03/17/21 20:59 Justifications for Admission Other Justification HINA ROLAND III DO Mar 18, 2021 08:13
[2021-03-18] MEDS ORDERED: ROCURONIUM 50 MG/5 ML VIAL. ONE (08:38)
[2021-03-18] MEDS ORDERED: fentaNYL PF VIAL 100 MCG/2 ML VIAL ONE ×2 (08:39→10:42)
[2021-03-18] MEDS ORDERED: PROPOFOL 10 MG/ML (20ML) VIAL. IV ONE (08:40)
[2021-03-18] MEDS ORDERED: LIDOCAINE 2% PF 5 ML VIAL. ONE ×2 (08:40→09:34)
[2021-03-18] MEDS ORDERED: SEVOFLURANE 61 TO 120 MINUTES. IH ONE (08:40)
[2021-03-18] MEDS ORDERED: ONDANSETRON PF 4 MG/2 ML VIAL. ONE (08:40)
[2021-03-18] MEDS ORDERED: DEXAMETHASONE SOD PHOS 4 MG/ML VIAL ONE (08:40)
[2021-03-18] MEDS: ZINC SULFATE 220 MG CAPSULE. PO SCH (09:00)
[2021-03-18] MEDS: CHOLECALCIFEROL (VITAMIN D3) 5,000 UNIT CAPSULE PO SCH (09:00)
[2021-03-18] MEDS: OMEGA-3 FATTY ACIDS/FISH OIL 1,000 MG CAPSULE. PO SCH (09:00)
[2021-03-18] MEDS ORDERED: BUPIVACAINE-EPI 0.25% 30 ML VIAL KIT. ONE (09:20)
[2021-03-18] MEDS ORDERED: IOHEXOL 300 MG/ML 50 ML VIAL. ONE (09:20)
[2021-03-18] MEDS ORDERED: SURGICEL HEMOSTAT 4X8 EACH. ONE (09:20)
[2021-03-18] MEDS ORDERED: ePHEDrine PF IN SALINE 50 MG/10 ML SYRINGE. IV ONE (09:44)
[2021-03-18] MEDS ORDERED: NEOSTIGMINE METHYLSULFATE 5 MG/5 ML SYRINGE. ONE (10:23)
[2021-03-18] MEDS ORDERED: GLYCOPYRROLATE 1 MG/5 ML VIAL. ONE (10:23)
[2021-03-18] MEDS ORDERED: PHENYLEPHRINE in 0.9% NACL PF 1 MG/10 ML SYRINGE. IV ONE (10:23)
--- NOTE | 2021-03-18 10:25 | PDOC ---
Date of Service: DATE: 03/18/21 TIME: 10:23 Objective: Vital Signs: Vital Signs Date Time Temp Pulse Resp B/P (MAP) Pulse Ox O2 Delivery O2 Flow Rate FiO2 03/18/21 08:27 97.3 64 25 151/90 95 Room Air 97.3 03/18/21 03:00 6.0 Labs: Laboratory Tests Test 03/18/21 06:05 White Blood Count 7.6 x10^3/uL Red Blood Count 4.37 x10^6/uL Hemoglobin 11.7 g/dL Hematocrit 36.9 % Mean Corpuscular Volume 84 fL Mean Corpuscular Hemoglobin 27 pg Mean Corpuscular Hemoglobin Concent 32 g/dL Red Cell Distribution Width 15.6 % Platelet Count 343 x10^3/uL Neutrophils (%) (Auto) 76 % Lymphocytes (%) (Auto) 11 % Monocytes (%) (Auto) 10 % Eosinophils (%) (Auto) 3 % Basophils (%) (Auto) 0 % Neutrophils # (Auto) 5.8 x10^3/uL Lymphocytes # (Auto) 0.9 x10^3/uL Monocytes # (Auto) 0.8 x10^3/uL Eosinophils # (Auto) 0.2 x10^3/uL Basophils # (Auto) 0.0 x10^3/uL Sodium Level 143 mmol/L Potassium Level 4.0 mmol/L Chloride Level 107 mmol/L Carbon Dioxide Level 29 mmol/L Anion Gap 7 Blood Urea Nitrogen 9 mg/dL Creatinine 0.9 mg/dL Estimated GFR (Cockcroft-Gault) 85.0 BUN/Creatinine Ratio 10 Glucose Level 82 mg/dL Calcium Level 8.4 mg/dL Total Bilirubin 1.0 mg/dL Aspartate Amino Transf (AST/SGOT) 172 U/L Alanine Aminotransferase (ALT/SGPT) 518 U/L Alkaline Phosphatase 241 U/L Total Protein 6.3 g/dL Albumin 3.0 g/dL Albumin/Globulin Ratio 0.9 Amylase Level 86 U/L Lipase 423 U/L Imaging: ERCP with sphincterotomy/stone extractions Pre-op dx Choledocholithiasis Post-op dx Choledocholithiasis s/p sphincterotomy/stone extractions Plan am labs ice chips lap loan in near future if wihtout complications post-ERCP PE: out of room A/P: Choledocholithiasis s/p ERCP/sphincterotomy/stone extraction Elevated LFTs - better -- Out for cholecystectomy, will follow. Justicifation of Admission Dx: Justifications for Admission: Justification of Admission Dx: Yes ANGELIA PEACOCK Mar 18, 2021 10:25
--- NOTE | 2021-03-18 10:30 | PDOC4 ---
Operative Note Operative Note Date: March 18, 2021 at 1027 Preoperative diagnosis: Acute cholecystitis cholelithiasis Postoperative diagnosis: Same Procedure: Laparoscopic cholecystectomy Surgeon: Manny Specimen: Gallbladder Dictation: Patient is a 65-year-old gentleman has been to the hospital right upper quadrant abdominal pain a CT scan showing signs of acute cholecystitis choledocholithiasis. Patient underwent ERCP yesterday with removal of 2 stones from his common bile duct. Procedure of laparoscopic cholecystectomy was explained to the patient detail risk benefits were also discussed including bleeding infection injury to intra-abdominal contents possible necessitating further open operations alternatives to this procedure also discussed with the patient who seemed to understand and gave both verbal and written consent to have procedure performed. Patient was taken to the operating room placed in the supine position general anesthesia was initiated once patient was sleeping intubated his abdomen was prepped and draped usual sterile fashion using ChloraPrep. Area left upper quadrant was injected quarter percent Marcaine with epinephrine incision was made 11 blade scalpel and a 5 mm Visiport was placed under direct visualization into the abdomen creating pneumoperitoneum once this was complete a 11 mm port was placed at the umbilicus under direct visualization a second 5 mm port was placed in the epigastrium 5 mm ports placed in the right midabdomen and 5 mm ports placed in the right lateral abdomen. There is quite a bit of adhesions to the gallbladder which were taken down blunt dissection expos ing the very top of the gallbladder which was grasped with a grasper and retracted cephalad rest of adhesions were taken down blunt dissection down to the infundibulum which was grasped and retracted laterally exposing the triangle of adherent tissue the triangle were taken down blunt and sharp dissection exposing the cystic duct and cystic artery the cystic artery was doubly clipped and transected the cystic duct was then doubly clipped and transected. The gallbladder is taken off the liver with hook electrocautery placed in Endo Catch bag and removed the umbilicus right upper quadrant is irrigated and suctioned dry hemostasis deemed be appropriate the pneumoperitoneum was reduced all ports were removed the fascial defect at the umbilicus was closed with a [id number] 0 Vicryl suture skin was reapproximated all port sites for subcuticular Monocryl Mastisol Steri-Strips and island dressings were applied. Patient was awakened and extubated in the operating room taken to recovery in stable condition all sponge instrument needle counts listed as correct. Estimated blood loss 10 mL JOSE ELIAS LYONS MD Mar 18, 2021 10:30
[2021-03-18] MEDS ORDERED: KETOROLAC 30 MG/ML VIAL. ONE (10:43)
[2021-03-18] MEDS ORDERED: oxyCODONE/APAP 5/325 1 TAB TABLET PO PRN (10:45)
[2021-03-18] MEDS ORDERED: MORPHINE SULFATE 2 MG/ML VIAL. ONE (11:01)
[2021-03-18] MEDS: MORPHINE SULFATE 2 MG/ML VIAL. IVP PRN ×2 (11:09→11:21)
[2021-03-18] MEDS: LISINOPRIL 20 MG TABLET PO SCH (12:48)
--- NOTE | 2021-03-18 13:00 | NUR ---
Pt had Lap Afshan done today. Returned from Post op with 5 lap sites that were dressed with steri strips and island dressings. Son arrived shortly after pt returned to his room. Pt sleepy but taking fluids without problems. Will continue to monitor
--- NOTE | 2021-03-18 14:34 | NUR ---
SS following up with discharge planning. SS reviewed pt chart and discussed with pt RN. Pt is from home and is currently on room air. Pt had lap loan today. Discharge plan is currently to home when medically ready. SS will continue to follow for discharge planning.
[2021-03-18 15:00] VITALS: BP 152/60
[2021-03-18 19:00] VITALS: BP 113/72
[2021-03-18] MEDS: oxyCODONE/APAP 10/325 1 TAB TABLET PO PRN (19:36)
[2021-03-18 23:00] VITALS: BP 119/79
[2021-03-19 03:00] VITALS: BP 126/78
[2021-03-19 07:00] VITALS: BP 126/78
[2021-03-19] MEDS: ZINC SULFATE 220 MG CAPSULE. PO SCH (08:32)
[2021-03-19] MEDS: OMEGA-3 FATTY ACIDS/FISH OIL 1,000 MG CAPSULE. PO SCH (08:32)
[2021-03-19] MEDS: LISINOPRIL 20 MG TABLET PO SCH (08:33)
[2021-03-19] MEDS: oxyCODONE/APAP 10/325 1 TAB TABLET PO PRN (08:33)
[2021-03-19] MEDS: CHOLECALCIFEROL (VITAMIN D3) 5,000 UNIT CAPSULE PO SCH (08:33)
--- NOTE | 2021-03-19 09:56 | PDOC ---
Date of Service: DATE: 03/19/21 TIME: 09:54 Subjective: Subjective: Post-op pain manageable, passing gas, tolerating food, wants to go home. Objective: Objective: Op note reviewed. Vital Signs: Vital Signs Date Time Temp Pulse Resp B/P (MAP) Pulse Ox O2 Delivery O2 Flow Rate FiO2 03/19/21 08:33 60 126/78 03/19/21 08:00 Room Air 03/19/21 07:00 98.1 18 91 98.1 03/18/21 11:21 6.0 PE: GEN: NAD LUNGS: CTAB HEART: RRR ABD: quiet BS, soft, RUQ incisional discomfort (mild) NEURO/PSYCH: A & O 3 A/P: Choledocholithiasis s/p ERCP/sphincterotomy/stone extraction and s/p cholecystectomy -- LFTs improved after ERCP. Dc per primary/surgery. Justicifation of Admission Dx: Justifications for Admission: Justification of Admission Dx: Yes ANGELIA PEACOCK Mar 19, 2021 09:56
--- NOTE | 2021-03-19 09:59 | PDOC ---
SURGICAL PROGRESS NOTE DATE: 03/19/21 TIME: 09:57 Subjective tolerating diet sore throat sore RUQ Vital Signs Vital Signs Date Time Temp Pulse Resp B/P (MAP) Pulse Ox O2 Delivery O2 Flow Rate FiO2 03/19/21 08:33 60 126/78 03/19/21 08:00 Room Air 03/19/21 07:00 98.1 18 91 98.1 03/18/21 11:21 6.0 I&O Intake and Output 03/19/21 07:00 Intake Total 1950 ml Output Total 10 ml Balance 1940 ml Intake Oral 300 ml IV Total 1650 ml Estimated Blood Loss 10 ml # Voids 3 General: Alert, Oriented X3, Cooperative Abdomen: Soft, Other (lap dressings dry) Labs Laboratory Tests Test 03/18/21 06:05 White Blood Count 7.6 x10^3/uL (4.0-11.0) Red Blood Count 4.37 x10^6/uL (4.30-5.70) Hemoglobin 11.7 g/dL (13.0-17.5) Hematocrit 36.9 % (39.0-53.0) Mean Corpuscular Volume 84 fL (79-100) Mean Corpuscular Hemoglobin 27 pg (25-35) Mean Corpuscular Hemoglobin Concent 32 g/dL (31-37) Red Cell Distribution Width 15.6 % (11.5-14.5) Platelet Count 343 x10^3/uL (140-400) Neutrophils (%) (Auto) 76 % (31-73) Lymphocytes (%) (Auto) 11 % (24-48) Monocytes (%) (Auto) 10 % (0-9) Eosinophils (%) (Auto) 3 % (0-3) Basophils (%) (Auto) 0 % (0-3) Neutrophils # (Auto) 5.8 x10^3/uL (1.8-7.7) Lymphocytes # (Auto) 0.9 x10^3/uL (1.0-4.8) Monocytes # (Auto) 0.8 x10^3/uL (0.0-1.1) Eosinophils # (Auto) 0.2 x10^3/uL (0.0-0.7) Basophils # (Auto) 0.0 x10^3/uL (0.0-0.2) Sodium Level 143 mmol/L (136-145) Potassium Level 4.0 mmol/L (3.5-5.1) Chloride Level 107 mmol/L (98-107) Carbon Dioxide Level 29 mmol/L (21-32) Anion Gap 7 (6-14) Blood Urea Nitrogen 9 mg/dL (8-26) Creatinine 0.9 mg/dL (0.7-1.3) Estimated GFR (Cockcroft-Gault) 85.0 BUN/Creatinine Ratio 10 (6-20) Glucose Level 82 mg/dL (70-99) Calcium Level 8.4 mg/dL (8.5-10.1) Total Bilirubin 1.0 mg/dL (0.2-1.0) Aspartate Amino Transf (AST/SGOT) 172 U/L (15-37) Alanine Aminotransferase (ALT/SGPT) 518 U/L (16-63) Alkaline Phosphatase 241 U/L (46-116) Total Protein 6.3 g/dL (6.4-8.2) Albumin 3.0 g/dL (3.4-5.0) Albumin/Globulin Ratio 0.9 (1.0-1.7) Amylase Level 86 U/L (25-115) Lipase 423 U/L (73-393) Problem List Problems Medical Problems: (1) Acute gallstone pancreatitis Status: Acute (2) Acute pancreatitis Status: Acute (3) Elevated liver function tests Status: Acute Assessment/Plan s/p loan stable surgically, can dc when medically ready Justicifation of Admission Dx: Justifications for Admission: Justification of Admission Dx: Yes FARHAD CASILLAS LEAD SHAREPOINT DEVELOPER Mar 19, 2021 09:59
[2021-03-19] MEDS ORDERED: OXYC1TAB22 PO (10:02)
[2021-03-19 11:00] VITALS: BP 122/77
[2021-03-19] MEDS ORDERED: OXYC1TAB15 PO (11:12)
--- NOTE | 2021-03-19 13:01 | NUR ---
Pt was read discharge packet and had no questions/concerns. Pt's IV was taken out, and heart monitor taken off. Pt was stable when leaving unit.
--- NOTE | 2021-03-19 13:22 | DS ---
DATE OF DISCHARGE: 03/19/2021 ADMISSION DIAGNOSIS: Gallstone pancreatitis. DISCHARGE DIAGNOSES: Postoperative day #1, laparoscopic cholecystectomy and postoperative day #2 ERCP with 3 stones extracted. HOSPITAL COURSE: The patient is a pleasant, healthy 65-year-old male who presented with pancreatitis. He was noted to have gallstones and choledocholithiasis. He was admitted. We consulted GI and General Surgery. He went for an ERCP, then he went for a laparoscopic cholecystectomy. Today, I saw him and examined him. He is at his baseline. We plan to discharge to home with close outpatient followup. DISPOSITION: Home. ACTIVITY: As tolerated. DIET: Low sodium. MEDICATIONS: I left him a prescription for Percocet 10 mg, #30, take 1 p.o. q.6 hours p.r.n. and we will continue his home meds, which include atorvastatin 40 a day, sertraline 10 a day, vitamin D, fexofenadine 180 daily, lisinopril 20 a day, omega 3 fatty acids, and zinc 50 daily. TOTAL TIME: [address]: Keaton TID: [id number]
--- NOTE | 2021-03-19 17:43 | PATHOLOGY ---
[facility] Accession Number: [id number] . 01 Material submitted: . gallbladder - GALLBLADDER AND CONTENTS . 01 Clinical history: . ACUTE PANCREATITIS LAP LEIGH . 02 Diagnosis: Gallbladder, laparoscopic cholecystectomy: - Acute and chronic fibrosing cholecystitis with increased eosinophils. (JPM:pit; 03/19/2021) [facility] 03/19/2021 1311 Local . 02 Comment: There are no calculi identified within the gallbladder lumen or specimen container. There is no evidence of malignancy. (JPM:pit; 03/19/2021) . 02 Electronically signed: . Jensen Kapoor MD, Pathologist NPI- [id number] . 01 Gross description: . Fixative: Formalin Labeled: Gallbladder and contents Specimen received: A previously opened gallbladder Dimensions: 8.5 x 2.5 x 2.5 cm Serosa: Cogdell-strickland Lymph node: Not present Mucosa: Velvety pink-strickland to light green bile stained, congested/hemorrhagic at the fundus Average wall thickness: 0.2-0.5 Calculi: Not present in the specimen or the container Abnormalities: No grossly apparent lesions A1- Large Animal Veterinarian sections of cystic duct margin, neck, and body A2 - appeals representative sections of body and fundus (BLJ; 03/18/2021) . [facility]/BLJ 03/18/2021 2015 Local . 02 Pathologist provided ICD-10: K81.2 . 02 CPT . 790377 Specimen Comment: A courtesy copy of this report has been sent to [phone] Specimen Comment: [id number], Specimen Comment: Report sent to ,DR LEE / DR POZO Performed at: [address] [id number] [facility] [address], [place], [place] [id number] MD Stuart Conti MD Phone: [phone] Performed at: [address] [id number] MD Jensen Kapoor MD Phone: [phone]
== END 2021-03-19 13:00 | disposition home or self-care (01) | DRG 417 ==
LOC: ER 16:27 → 6 SOUTH 19:08
PROVIDERS: ADMIT Internal Medicine; ATTEND Internal Medicine
PROC: 0FC98ZZ Extirpation of Matter from Common Bile Duct, Via Natural or Artificial Opening Endoscopic (ICD-10-PCS; 2021-03-14)
PROC: 0FT44ZZ Resection of Gallbladder, Percutaneous Endoscopic Approach (ICD-10-PCS; principal; 2021-03-18 09:30)
DX: K80.62 Calculus of gallbladder and bile duct with acute cholecystitis without obstruction (principal); K85.10 Biliary acute pancreatitis without necrosis or infection; E78.5 Hyperlipidemia, unspecified; I10 Essential (primary) hypertension; E66.9 Obesity, unspecified; Z68.38 Body mass index [BMI] 38.0-38.9, adult
CPT/HCPCS: 36415; 43262; 43264; 74177; 74328; 80048; 80053; 80076; 80307; 80329; 82150; 82550; 83690; 85025; 85610; 85730; 88304; 93005; A4213; A4364; A4657; A4930; A6219; C1769; J0330; J0690; J1100; J2270; J2370; J2405; J2704; J2710; J3010; J3490; J7030; Q9967; 99285-25; G0378; G0480